=== PATIENT | female | born 1995 | race African-American/Black ===

== ENCOUNTER 2017-01-28 21:25 | Emergency (ER) | payer SELFPAY ==
[2017-01-28 21:39] VITALS: BP 112/69; BMI 23.0
[2017-01-28 23:12] LABS: BILIRUBIN,URINE NEGATIVE (NEGATIVE); BLOOD/HEMOGLOBIN,URINE NEGATIVE (NEGATIVE); GLUCOSE, URINE NEGATIVE (NEGATIVE); KETONES,URINE NEGATIVE (NEGATIVE); LEUKOCYTE ESTERASE ,URINE 3+ (NEGATIVE); NITRITES,URINE NEGATIVE (NEGATIVE); PROTEIN,URINE NEGATIVE (NEGATIVE); UROBILINOGEN,URINE 1+ (NORMAL)
[2017-01-28 23:31] LABS: APPEARANCE,URINE SLIGHTLY HAZY (CLEAR); BACTERIA,URINE TRACE /HPF (NEGATIVE); COLOR,URINE YELLOW (YELLOW); RBC,URINE 0-3 /HPF (NEGATIVE); SQUAMOUS EPITHELIAL CELL,UR FEW /HPF (NEGATIVE)
--- NOTE | 2017-01-28 23:53 | DR.GENAD ---
HPI - PCP Primary Care Physician: DR. Virgie DAMON - HPI Comment HPI Comment: TODAY, PAIN DIFFUSE AND ABDOMEN DISTENDED. NO FEVER OR DYSURIA. PAIN MOST IN BOTH FLANK AREA. NAUSEA PREAENT BUT NO VOMITING. - Complaint/Symptoms Chief Complaint Doctors Comments: LOWER BACK AND LOWER ABDOMINAL PAIN TIMES 2 DAYS. Chief Complaint:: PAIN STARTING IN LOWER ABD RADIATING UPWARDS AND THROUGOUT ABOMEN. PATIENT ALSO HAVING LOWER BACK PAIN. MILD PAIN FOR TWO DAYS AND SEVERE PAIN STARTED EARLY THIS MORNING Self Treatment fo Chief Complaint: NONE - Nurses notes reviewed Nurses Notes Review: Yes - Source History Provided: Patient, Parent - Mode of Arrival Mode of Arrival: Ambulatory - Timing Onset of Chief Complaint: 01/26/17 Came on: Suddenly - Duration Duration: Constant Duration: Days - Severity Severity: Moderate PMH - PMH Past Medical History: Yes Past Medical History: Depression Past Surgical History: No - Family History History of Family Medical Conditions: Yes Family Medical History: Diabetes Mellitus, Hypertension - Social History Does patient currently use any type of tobacco product: No Have you used tobacco products in the last 12 months: No Type of Tobacco Use: None Does any household member use tobacco: No Alcohol Use: None Do you use any recreational Drugs:: No Lives With: Mom Lives Where: Home - infectious screening In the last 2 months have you had wt loss of >10#?: NO Have you had fever, night sweats or hemotysis?: No Have you traveled outside the country in the last 6 months?: No ROS - Review of Systems Constitutional: No Symptoms Reported. negative: Chills, Fever Eyes: No Symptoms Reported. negative: Eye Pain, Discharge ENTM: No Symptoms Reported. negative: Ear Pain, Ear Discharge, Nose Discharge, Nose Congestion, Throat Pain Respiratoy: No Symptoms Reported. negative: Productive Cough, Non-Productive Cough, Short of Breath, Wheezing, Hemoptysis Cardiovascular: No Symptoms Reported. negative: Chest Pain, Edema, Palpitations Gastrointestinal/Abdominal: Abdominal Pain, Nausea. negative: Constipation, Diarrhea, Vomiting Genitourinary: No Symptoms Reported. negative: Dysuria, Frequency, Hematuria Neurological: No Symptoms Reported Musculoskeletal: Back Pain, Back, Other (BILATERAL FLANK PAIN.) Integumentary: No Symptoms Reported Hematologic/Lymphatic: No Symptoms Reported Endocrine: No Symptoms Reported All Other Systems: Reviewed and Negative PE - Vital Signs Vitals: Temperature 98.8 F Pulse Rate 90 Respiratory Rate 24 Blood Pressure 112/69 O2 Sat by Pulse Oximetry 100 - General Limitations: No Limitations General Appearance: Alert - Head Head Exam: Normal Inspection - Eyes Eye exam: Normal Appearance - ENT ENT Exam: Normal External Ear Exam External Ear Exam: Normal External Inspection TM/Canal Exam: Bilateral Normal Nose Exam: Normal Nose Exam Mouth Exam: Normal Inspection Throat Exam: Normal Inspection - Neck Neck Exam: Trachea Midline - Chest Chest Inspection: Symmetric Chest Wall Rise - Respiratory Respiratory Exam: Normal Lung Sounds Bilat Respiratory Exam: Bilateral Clear to Auscultation - Cardiovascular Cardiovascular Exam: Regular Rate, Normal Rhythm, Normal Heart Sounds - Abdominal Exam Abdominal Exam: Normal Bowel Sounds, Soft, Tenderness Abdominal Tenderness: Diffuse, Moderate - Extremities Extremities Exam: Normal Inspection - Back Back Exam: (R) CVA Tenderness, (L) CVA Tenderness, Paraspinal Tenderness - Neurologic Neurological Exam: Alert, Oriented X3, CN II-XII Intact, Normal Gait, Reflexes Normal. negative: Motor Sensory Deficit - Psychiatric Psychiatric Exam: Anxious - Skin Skin Exam: Normal Color [facility] - Additional Information Additional Information Obtained From: Family - Differential Diagnosis Differential Diagnosis: ABDOMINAL PAIN, LOWER BACK PAIN, BOWEL OBSTRUCTION, UTI , KIDNEY STONE Course - Treatment Treatment: SEE ORDERS. - Education/Counseling Education/Counseling: Patient, Family, Education Educated On: Treatment, Diagnosis, Needs for Follow Up ROR - Labs Reviewed Laboratory Results Reviewed?: Yes Result Diagrams: 01/29/17 00:05 01/29/17 00:05 Laboratory: WBC 8.8 X10^3/uL (3.6-10.0) 01/29/17 00:05 RBC 3.49 X10^6/uL (3.5-5.4) L 01/29/17 00:05 Hgb 10.9 g/dL (12.0-16.0) L 01/29/17 00:05 Hct 32.1 % (36.0-47.0) L 01/29/17 00:05 MCV 92.1 fL (80.0-100.0) 01/29/17 00:05 MCH 31.3 pg (27.0-34.0) 01/29/17 00:05 MCHC 34.0 g/dL (33.0-35.0) 01/29/17 00:05 RDW 13.7 % (11.6-16.5) 01/29/17 00:05 Plt Count 189 X10^3/uL (150.0-450.0) 01/29/17 00:05 MPV 11.0 fL (7.4-11.0) 01/29/17 00:05 Neut % 70.8 % (42.0-75.0) 01/29/17 00:05 Lymph % 19.2 % (21.0-51.0) L 01/29/17 00:05 [place] % 9.3 % (0.0-13.0) 01/29/17 00:05 Eos % 0.4 % (0.9-2.9) L 01/29/17 00:05 Baso % 0.3 % (0.2-1.0) 01/29/17 00:05 Neut # 6.2 x10^3/uL (2.2-4.8) H 01/29/17 00:05 Lymph # 1.7 X10^3/uL (1.3-2.9) 01/29/17 00:05 [place] # 0.8 x10^3/uL (0.3-0.8) 01/29/17 00:05 Eos # 0.0 x10^3/uL (0.0-0.2) 01/29/17 00:05 Baso # 0.0 X10^3/uL (0.0-0.1) 01/29/17 00:05 Absolute Nucleated RBC 0.0 /100WBC 01/29/17 00:05 Sodium 138 mmol/L (136-145) 01/29/17 00:05 Corrected Sodium TNP 01/29/17 00:05 Potassium 3.9 mmol/L (3.5-5.1) 01/29/17 00:05 Chloride 103 mmol/L (98-107) 01/29/17 00:05 Carbon Dioxide 30.9 mmol/L (21-32) 01/29/17 00:05 BUN 16 mg/dL (7-18) 01/29/17 00:05 Creatinine 0.87 mg/dL (0.55-1.02) 01/29/17 00:05 Est GFR (MDRD) Af Amer > 60 (>60) 01/29/17 00:05 Est GFR (MDRD) Non-Af > 60 (>60) 01/29/17 00:05 Glucose 96 mg/dL (65-99) 01/29/17 00:05 Calcium 9.2 mg/dL (8.5-10.1) 01/29/17 00:05 Corrected Calcium TNP 01/29/17 00:05 Total Bilirubin 0.40 mg/dL (0.2-1.0) 01/29/17 00:05 AST 31 Units/L (15-37) 01/29/17 00:05 ALT 40 Units/L (12-78) 01/29/17 00:05 Alkaline Phosphatase 75 Units/L (45-150) 01/29/17 00:05 Total Protein 8.1 g/dL (6.4-8.2) 01/29/17 00:05 Albumin 3.4 g/dL (3.4-5.0) 01/29/17 00:05 Globulin 4.7 g/dL (2.5-4.5) H 01/29/17 00:05 Albumin/Globulin Ratio 0.7 Ratio (1.1-2.1) L 01/29/17 00:05 HCG, Qual Negative <10 mIU/mL 01/29/17 00:05 Specimen Type Clean catch urine 01/28/17 22:42 Urine Color Yellow (YELLOW) 01/28/17 22:42 Urine Appearance Slightly hazy (CLEAR) 01/28/17 22:42 Urine pH 8.0 (5.0 - 8.0) 01/28/17 22:42 Ur Specific [place] 1.015 (1.000-1.030) 01/28/17 22:42 Urine Protein Negative (NEGATIVE) 01/28/17 22:42 Urine Glucose (UA) Negative (NEGATIVE) 01/28/17 22:42 Urine Ketones Negative (NEGATIVE) 01/28/17 22:42 Urine Occult Blood Negative (NEGATIVE) 01/28/17 22:42 Urine Nitrite Negative (NEGATIVE) 01/28/17 22:42 Urine Bilirubin Negative (NEGATIVE) 01/28/17 22:42 Urine Urobilinogen 1+ (NORMAL) 01/28/17 22:42 Ur Leukocyte Esterase 3+ (NEGATIVE) 01/28/17 22:42 Urine RBC 0-3 /HPF (NEGATIVE) 01/28/17 22:42 Urine WBC 15-20 /HPF (NEGATIVE) 01/28/17 22:42 Ur Squamous Epith Cells Few /HPF (NEGATIVE) 01/28/17 22:42 Urine Bacteria Trace /HPF (NEGATIVE) 01/28/17 22:42 Ur Culture Indicated? Yes/culture set up 01/28/17 22:42 - XRAY XRAY Interpreted by: Radiologist XRAY Findings: REPORT DISCUSS WITH PATIENT AND MOTHER. - Diagnosis Discharge Problem: Flank pain Abdominal pain Qualifiers: Abdominal location: upper abdomen, unspecified Qualified Code(s): R10.10 - Upper abdominal pain, unspecified Low back pain Qualifiers: Chronicity: acute Back pain laterality: bilateral Sciatica presence: without sciatica Qualified Code(s): M54.5 - Low back pain UTI (urinary tract infection) Qualifiers: Urinary tract infection type: acute cystitis Hematuria presence: without hematuria Qualified Code(s): N30.00 - Acute cystitis without hematuria - Discharge Plan Disposition: HOME, SELF-CARE Condition: Stable Prescriptions: Ibuprofen [MOTRIN TAB 600 MG *] 600 mg PO TID PRN #20 tab PRN Reason: Pain/Inflammation Ranitidine HCl [ZANTAC TAB 150 MG *] 150 mg PO BID #30 tab Sulfamethoxazole-Trimethoprim [BACTRIM DS TAB 800/160 MG *] 1 tab PO BID #20 tab - Follow ups/Referrals Follow ups/Referrals: Charli DAMON [Primary Care Provider] - 3 days - Instructions Instructions: Urinary Tract Infection, Adult, [id number], Abdominal Pain, Adult, [id number], Back Pain, Adult, [id number]
[2017-01-29 00:18] LABS: BASOPHILS % (AUTO) 0.3 % (0.2-1.0); EOSINOPHILS % (AUTO) 0.4 % (0.9-2.9); HEMATOCRIT 32.1 % (36.0-47.0); HEMOGLOBIN 10.9 g/dL (12.0-16.0); LYMPHOCYTES # (AUTO) 1.7 X10^3/uL (1.3-2.9); LYMPHOCYTES % (AUTO) 19.2 % (21.0-51.0); MEAN CORPUSCULAR HEMOGLOBIN 31.3 pg (27.0-34.0); MEAN CORPUSCULAR VOLUME 92.1 fL (80.0-100.0); MONOCYTES # (AUTO) 0.8 x10^3/uL (0.3-0.8); MONOCYTES % (AUTO) 9.3 % (0.0-13.0); NEUTROPHILS # (AUTO) 6.2 x10^3/uL (2.2-4.8); NEUTROPHILS % (AUTO) 70.8 % (42.0-75.0); PLATELET COUNT 189 X10^3/uL (150.0-450.0); RED BLOOD COUNT 3.49 X10^6/uL (3.5-5.4); RED CELL DISTRIBUTION WIDTH 13.7 % (11.6-16.5); WHITE BLOOD COUNT 8.8 X10^3/uL (3.6-10.0)
[2017-01-29 00:26] LABS: ALANINE AMINOTRANSFERASE 40 Units/L (12-78); ALBUMIN 3.4 g/dL (3.4-5.0); ALKALINE PHOSPHATASE 75 Units/L (45-150); ASPARTATE AMINO TRANSFERASE 31 Units/L (15-37); BLOOD UREA NITROGEN 16 mg/dL (7-18); CALCIUM 9.2 mg/dL (8.5-10.1); CARBON DIOXIDE 30.9 mmol/L (21-32); CHLORIDE 103 mmol/L (98-107); CREATININE 0.87 mg/dL (0.55-1.02); GLUCOSE 96 mg/dL (65-99); SODIUM 138 mmol/L (136-145); TOTAL PROTEIN 8.1 g/dL (6.4-8.2); eGFR BLACK RACES > 60 (>60); eGFR NON BLACK RACES > 60 (>60)
--- NOTE | 2017-01-29 00:36 | CT ---
CT abdomen and pelvis without contrast Indication: Abdominal pain Comparison: None available. Technique: Multiple axial images of the abdomen and pelvis were obtained from the lung bases to the pubic symphy sis without the administration of IV contrast. Coronal and sagittal images were also provided. No re ason was provided as to why no IV or oral contrast was administered. Radiation dose reduction techniques were performed utilizing adjustment for MA/kVP based on patient body size. Findings: Significantly limited examination given lack of IV contrast administration. The visualized portions of the lung bases are unremarkable. The bony structures are grossly intact. Given the limitations of lack of IV contrast administration the liver, gallbladder, spleen, pancreas, and adrenal glands are unremarkable in their CT appearance. No evidence of stone within either kidney or ureter. No hydronephrosis is identified. No bowel wall thickening or bowel dilatation is present. The colon and rectum are unremarkable. The re is mild diffuse bladder wall thickening. The uterus is difficult to characterize given lack of IV contrast however appears to be enlarged. Moderate amount of pelvic free fluid. The appendix is normal in caliber with gas within the lumen proximally however there are inspissated secretions within dist al lumen of the appendix seen on coronal image 22. No mesenteric lymphadenopathy or stranding can be observed. No free air is seen within the abdomen. IMPRESSION: 1. Significantly limited examination given lack of IV or oral contrast administration. 2. Diffuse bladder wall thickening is nonspecific however can be seen the setting of acute interstiti al cystitis. 3. The appendix is normal in caliber with gas within its proximal lumen. Inspissated secretions are n oted within the distal lumen. 4. Pelvic free fluid is nonspecific this may be secondary to occult inflammatory or infectious proces s however also may be seen in the setting of recent the ovarian follicular cyst rupture. Reported By:
[2017-01-29 00:50] LABS: SERUM PREGNANCY TEST, QUAL NEGATIVE <10 mIU/mL
[2017-01-29] MEDS ORDERED: BACTRIM DS TAB PO ONE ×2 (00:57→01:06)
[2017-01-29] MEDS ORDERED: TORADOL TAB PO ONE ×2 (00:57→01:06)
[2017-01-29] MEDS ORDERED: ZANTAC PO ONE ×2 (00:59→01:06)
== END 2017-01-29 01:16 | disposition home or self-care (01) ==
LOC: ER 21:25
DX: N30.00 Acute cystitis without hematuria (principal); R10.10 Upper abdominal pain, unspecified; M54.5 Low back pain
CPT/HCPCS: 36415; 74176; 80053; 81001; 84703; 85025; 87086; 99283